=== PATIENT | female | born 1965 | race Caucasian/White ===

== ENCOUNTER 2023-08-10 13:58 | Emergency (ER) | payer BC ==
[~2023-08-10] VITALS: Ht 175.3 cm; Wt 77.7 kg
[2023-08-10] MEDS ORDERED: HYDRALAZINE HCL 10 MG TAB PO ONE (14:30)
[2023-08-10] MEDS ORDERED: HYDRALAZINE HCL 20 MG/ML VIAL ONE (14:30)
[2023-08-10 14:50] VITALS: BP 233/107
[2023-08-10] MEDS: HYDRALAZINE HCL 20 MG/ML VIAL IV ONE (14:50)
[2023-08-10] MEDS: AMLODIPINE BESYLATE 5 MG TAB PO ONE (15:50)
[2023-08-10] MEDS ORDERED: AMLODIPINE BESYLATE 5 MG TAB ONE (15:53)
[2023-08-10 18:26] VITALS: O2SAT 98
== END 2023-08-10 18:40 | disposition other institution (70) ==
LOC: FSED 14:03
DX: R11.0 Nausea (principal); I16.0 Hypertensive urgency; R94.02 Abnormal brain scan; R42 Dizziness and giddiness; Z11.52 Encounter for screening for COVID-19; R94.31 Abnormal electrocardiogram [ECG] [EKG]
CPT/HCPCS: 0223U; 70450; 80053; 80307; 81003; 82553; 84484; 85025; 93005; 96374; 99284; J0360